=== PATIENT | female | born 1960 | race Caucasian/White ===

== ENCOUNTER → 2019-10-21 | Outpatient (CLI) | payer OTHER ==
[~2019-10-21] MED LIST: Ativan1 MG PO; BUPR150ER PO; GABA100 PO; HYDACE10B PO; LISHYD2025 PO; OLAN10 PO; PARO30 PO; PENVK500 PO; PROM25 PO; RANI150 PO; SIMV40 PO; SUMA25 PO
[2019-10-21 21:05] LABS: U Amphetamine Screen Not Detected; U Barbituate Screen DETECTED; U Benzodiazapine Screen DETECTED; U Buprenorphine Screen Not Detected; U Cannabinoids Screen Not Detected; U Cocaine Screen Not Detected; U Methadone Screen Not Detected; U Methamphetamine Screen Not Detected; U Opiates Screen Not Detected; U Oxycodone Screen Not Detected; U Phencyclidine Screen Not Detected; U Propoxyphene Screen Not Detected
== END | disposition home or self-care (01) ==
LOC: LAB SHORT 14:24 → LAB 14:24
PROVIDERS: Psychiatry & Neurology Psychiatry
DX: Z51.81 Encounter for therapeutic drug level monitoring (principal); Z79.899 Other long term (current) drug therapy

== ENCOUNTER → 2019-12-06 | Outpatient (CLI) | payer OTHER ==
[2019-12-07 15:07] LABS: HPV 16 Negative (Negative); HPV 18 Negative (Negative); HPV OTHER HR TYPES Negative (Negative)
== END | disposition home or self-care (01) ==
LOC: LAB 09:32 → LAB SHORT 09:32
PROVIDERS: Nurse Practitioner Family
DX: Z12.4 Encounter for screening for malignant neoplasm of cervix (principal)
CPT/HCPCS: 87624; G0145

== ENCOUNTER → 2020-04-11 | Outpatient (CLI) | payer OTHER | LOC: LAB SHORT 07:53 → PLD 07:53 | DX: C44.612 Basal cell carcinoma of skin of right upper limb, including shoulder (principal); C44.619 Basal cell carcinoma of skin of left upper limb, including shoulder; D04.5 Carcinoma in situ of skin of trunk; D04.61 Carcinoma in situ of skin of right upper limb, including shoulder; L82.0 Inflamed seborrheic keratosis; D48.5 Neoplasm of uncertain behavior of skin | CPT/HCPCS: 88341; 88342 ==

== ENCOUNTER → 2023-09-02 | Outpatient (CLI) | payer OTHER | END | disposition home or self-care (01) | LOC: LAB 07:48 → LAB SHORT 07:48 | DX: N61.1 Abscess of the breast and nipple (principal) | CPT/HCPCS: 87070; 87075; 87076; 87205 ==

== ENCOUNTER 2024-11-16 10:41 | Emergency (ER) | payer OTHER ==
[~2024-11-16] VITALS: Ht 177.8 cm; Wt 104.3 kg
[2024-11-16 10:47] VITALS: BP 160/92
[2024-11-16] MEDS ORDERED: HYDROcodone 5-APAP 325 TAB PO ONE (12:30)
[2024-11-16] MEDS ORDERED: HYDR1TAB94 PO (12:30)
[2024-11-17] MEDS ORDERED: HYDR1TAB94 PO ×2 (13:41→15:46)
== END 2024-11-16 12:35 | disposition home or self-care (01) ==
LOC: ER 10:41
DX: M25.561 Pain in right knee (principal); Z87.891 Personal history of nicotine dependence; Z79.899 Other long term (current) drug therapy
CPT/HCPCS: 73562-RT; 99283-25; A9270